=== PATIENT | male | born 1950 | race Caucasian/White ===

== ENCOUNTER 2016-08-13 06:55 | Observation (INO) | payer OTHER ==
[2016-08-13] MEDS ORDERED: NS 1,000 ML IV ONE (06:57)
[2016-08-13] MEDS ORDERED: MIDAZOLAM 2 MG/2 ML VIAL IVP ONE (06:57)
--- NOTE | 2016-08-13 07:18 | CPEKG ---
Heart Rate: 75 RR Interval: 800 P-R Interval: 180 QRSD Interval: 98 QT Interval: 384 QTC Interval: 429 P [place]: -1 QRS [place]: -32 T Wave [place]: 36 EKG Severity - OTHERWISE NORMAL ECG - EKG Impression: SINUS RHYTHM EKG Impression: LEFT AXIS DEVIATION Electronically Signed By: Iqra Miller 13-Aug-2016 09:17:25
[2016-08-13 07:42] LABS: % IMMATURE GRANULYOCYTES 0.2 % (0.0-1.1); ABSOLUTE IMMATURE GRANULOCYTES 0.01 10^3/uL (0.00-0.10); ADD DIFF? NO; ADD MORPH? NO; ADD SCAN? NO; ATYPICAL LYMPHOCYTE FLAG 0 (0-99); FRAGMENT RBC FLAG 0 (0-99); HEMATOCRIT 47.8 % (40.0-51.0); HEMOGLOBIN 16.4 g/dL (13.7-17.5); LEFT SHIFT FLG 0 (0-99); LIPEMIA HEMOLYSIS FLAG 90 (0-99); MEAN CELL HEMOGLOBIN 30.3 pg (27.9-34.1); MEAN CELL HEMOGLOBIN CONCENTR. 34.3 g/dL (32.4-36.7); MEAN CELL VOLUME 88.2 fL (81.5-99.8); MEAN PLATELET VOLUME 9.3 fL (8.7-11.7); PLATELET CLUMPS FLAG 0 (0-99); PLATELET COUNT 342 10^3/uL (150-400); RED BLOOD CELL COUNT 5.42 10^6/uL (4.40-6.38); RED CELL DISTRIBUTION WIDTH 13.2 % (11.5-15.2)
[2016-08-13 07:59] LABS: INR 1.04 (0.83-1.16); PROTIME(PATIENT) 13.5 SEC (12.0-15.0)
[2016-08-13 08:00] LABS: APTT 32.3 SEC (23.0-38.0)
[2016-08-13 08:08] LABS: ANION GAP 10 mEq/L (8-16); CALCIUM 9.5 mg/dL (8.5-10.4); CARBON DIOXIDE 25 mEq/l (22-31); CHLORIDE 107 mEq/L (97-110); CREATININE 0.9 mg/dL (0.7-1.3); GLOMERULAR FILTRATION RATE > 60; GLUCOSE 109 mg/dL (70-100); MAGNESIUM 2.2 mg/dL (1.6-2.3); POTASSIUM 4.4 mEq/L (3.5-5.2); SODIUM 142 mEq/L (134-144)
[2016-08-13] MEDS ORDERED: LIDOCAINE 1% 30 ML SDV ONE (08:12)
[2016-08-13] MEDS ORDERED: ISOPROTERENOL HCL 0.2 MG/ML 5ML AMP ONE (08:12)
[2016-08-13] MEDS ORDERED: BUPIVACAINE 0.5% 30 ML SDV ONE (08:12)
[2016-08-13] MEDS ORDERED: HEPARIN 10,000 UNIT/10 ML MDV ONE (08:12)
[2016-08-13] MEDS ORDERED: IOPAMIDOL (ISOVUE-370) 150 ML BTL IV ONE ×2 (08:15→09:41)
[2016-08-13] MEDS ORDERED: PROPOFOL/EMULSION 500 MG/50 ML BOTTLE IV ONE (08:30)
[2016-08-13] MEDS ORDERED: DIAZEPAM 10 MG/2 ML SYR ONE (08:31)
[2016-08-13] MEDS ORDERED: fentaNYL 100 MCG/2 ML INJ ONE (08:31)
[2016-08-13] MEDS ORDERED: BIVALIRUDIN 250 MG/5 ML VIAL IV ONE (09:34)
[2016-08-13] MEDS ORDERED: NITROGLYCERIN 1,500 MCG/15 ML VIAL MISC ONE (09:43)
[2016-08-13] MEDS ORDERED: PRASUGREL HCL 10 MG TAB ONE (10:24)
--- NOTE | 2016-08-13 11:16 | PDDXCAT ---
Diagnostic Cath Note - . Date: 08/13/16 Intervention: See Below *Procedure 1. Selective coronary angiography 2. Drug eluting stent implantation in the mid right coronary artery Indication: I was called for an intraoperative consultation after the identification of an 80% mid right coronary artery lesion during diagnostic cardiac catheterization with Dr. Pepe. Access: right femoral artery *Materials Coronary Angiography Size: 6F Coronary Angiography Materials: JR4.0, 0.014" Intuition Guide Wire, 3.0 x 32 mm Synergy drug eluting stent, 3.5 x 15 NC Emerge balloon, 4.5 x 8 mm compliant [place] Emerge balloon. *Findings-Selective coronary angiography RCA: The right coronary artery is dominant and ~3.5 mm in size. There is a mid RCA lesion estimated to be 80% in plaque area stenosis with IKE III flow and a prestenotic dilation of the artery estimated to be 4.5 mm in size. This lesion was revascularized with a 3.0 x 32 mm Synergy drug eluting stent as outlined below. *Intervention Intervention: A 6 Panamanian JR4.0 guiding catheter was used for guide catheter support. A 0.014" Intuition Guide Wire was advanced to the distal right coronary artery under direct fluoroscopic and angiographic guidance. Angiomax bolus and continuous infusion were given continuously with a documented ACT over 300 seconds. A 3.0 x 32 mm Synergy drug eluting stent was placed in the RCA lesion (80% with IKE III flow) and inflated to a maximum of 18 bibi of pressure. S/p stent implantation, a 3.5 x 15 mm NC Emerge balloon was used to post-dilate the lesion under 16 bibi of pressure. S/p post-dilation, the stent was still not opposed to the aneurysmal segment of the vessel wall proximal to the original lesion. A 4.5 x 8 mm complaint [place] Emerge balloon was placed in this segment and inflated to 16 bibi of pressure to solve that issue. The stent appeared well-opposed with 0% residual stenosis and IKE III flow s/p stent implantation and post dilation with both NC and compliant balloons. *Summary Complications: None Estimated blood loss: <50ml Closure method: Angioseal Assessment: 1. Successful drug eluting stent implantation in the mid right coronary artery with excellent angiographic results (80% plaque area stenosis pre stent implantation with IKE III flow | 0% plaque area stenosis post stent implantation with IKE III flow). Patient Problems: Problems Problem Status Onset MSSA (methicillin susceptible Staphylococcus aureus) Acute Osteomyelitis of right elbow Acute Septic bursitis of elbow Acute
[2016-08-13] MEDS ORDERED: TEMAZEPAM 15 MG CAP PO PRN (11:18)
[2016-08-13] MEDS ORDERED: ONDANSETRON DISINTEGRATING 4 MG TAB PO PRN (11:18)
[2016-08-13] MEDS ORDERED: ATROPINE SULFATE 1 MG/10 ML SYR IVP PRN (11:18)
[2016-08-13] MEDS ORDERED: NITROGLYCERIN 0.4 MG BTL SL PRN (11:18)
[2016-08-13] MEDS ORDERED: LORazepam 2 MG/ML INJ IVP PRN (11:18)
[2016-08-13] MEDS ORDERED: ACETAMINOPHEN 325 MG TAB PO PRN (11:18)
[2016-08-13] MEDS ORDERED: ONDANSETRON 4 MG/2 ML VIAL IVP PRN (11:18)
[2016-08-13] MEDS ORDERED: PRASUGREL HCL 10 MG TAB PO ONE (11:18)
[2016-08-13] MEDS ORDERED: NS 1,000 ML IV SCH (11:30)
--- NOTE | 2016-08-13 11:59 | GHP ---
DATE OF ADMISSION: 08/13/2016 INDICATION FOR ADMISSION: Post PCI. HISTORY OF PRESENT ILLNESS: The patient is a pleasant 66-year-old gentleman with a past medical his tory of hyperlipidemia, left ventricular hypertrophy, history of pernicious anemia, and recent histo ry of syncope without prodrome while riding his bike. He had undergone extensive workup to date, in cluding complete 2D echocardiogram, normal exercise nuclear stress test, unremarkable Holter monitor , as well as cardiac MRI. He was scheduled for outpatient elective admission today for diagnostic l eft heart catheterization, followed by EP study and implantable loop recorder. Diagnostic left heart catheterization demonstrated a significant focal tubular stenosis of the proxi mal codominant right coronary artery. He underwent successful percutaneous coronary intervention to the proximal right coronary artery without complication. In the setting of finding significant sin gle-vessel coronary artery disease, EP study was canceled. Plan for implantable loop recorder to be placed tomorrow prior to discharge. He tolerated the procedure well. PAST MEDICAL HISTORY: 1. Pernicious anemia. 2. Vitamin D deficiency. 3. Hyperlipidemia. 4. History of left ventricular hypertrophy. 5. History of non-prodromal syncope. OUTPATIENT MEDICATIONS: Include: 1. Aspirin 81 mg daily. 2. Atorvastatin 20 mg daily. 3. CoQ10 200 mg once daily. 4. Fish oil daily. 5. Multivitamin once daily. 6. Vitamin B12 injections 1000 mcg/mL, 1500 mcg injection IM q.1 month. 7. Vitamin D3 400 units daily. 8. Cyclobenzaprine 10 mg, take 1/2 tab p.o. q.h.s. p.r.n. muscle pain. 9. Cialis 10 mg p.o. p.r.n. ALLERGIES: No known drug allergies. SOCIAL HISTORY: He is . He lives with his . He is an avid cyclist. He has a son who i s an ER physician. He is a nonsmoker. FAMILY HISTORY: No family history of premature coronary artery disease. EXAMINATION: GENERAL: Prior to left heart catheterization, patient was awake, alert, oriented, marissa ropriate, no apparent distress. The patient was hemodynamically stable. IMPRESSION: 1. Severe single-vessel coronary artery disease. 2. Successful PCI to the proximal codominant right coronary artery. 3. Preserved left ventricular function. 4. History of syncope. PLAN: 1. Admit to [facility] overnight. 2. Initiate aspirin 325 mg once daily. 3. Prasugrel 60 mg loading today. Will start 10 mg p.o. daily tomorrow. 4. Continue atorvastatin 20 mg daily. 5. The patient will remain n.p.o. after midnight tonight in anticipation of implantable loop record er tomorrow morning, to be done prior to discharge. /[id number]/MODL
--- NOTE | 2016-08-13 12:03 | CPEKG ---
Heart Rate: 72 RR Interval: 833 P-R Interval: 192 QRSD Interval: 96 QT Interval: 396 QTC Interval: 434 P [place]: 27 QRS [place]: -15 T Wave [place]: 33 EKG Severity - OTHERWISE NORMAL ECG - EKG Impression: SINUS RHYTHM EKG Impression: BORDERLINE LEFT AXIS DEVIATION Electronically Signed By: Iqra Miller 13-Aug-2016 15:22:12
--- NOTE | 2016-08-13 12:30 | CPIP ---
DATE OF PROCEDURE: 08/13/2016 INDICATION FOR PROCEDURE: Non-prodromal syncope. PROCEDURE PERFORMED: Left heart catheterization. PATIENT SUMMARY: The patient is a pleasant 66-year-old gentleman, who has been followed closely by Dr. Yip at [facility], who was in his usual state of health until last fall when he had an episode of non- prodromal syncope while riding his bike. He had no memory of the details surrounding the event. He did undergo extensive workup including unremarkable complete 2D echocardiogram, normal exercise nuclear stress test, normal event monitoring. Cardiac MRI was also unremarkable. Did have a CT of the chest, which did demonstrate isolated right coronary artery plaque. In the setting of non-prodromal syncope coupled with evidence of PVCs, plan was for electrophysiology study with Dr. Vergara. However, in the setting of PVCs and evidence of calcified plaque on CT of the chest, diagnostic left heart catheterization was performed. PROCEDURE: After an informed consent was obtained, the patient was brought to the cardiac catheterization lab, where he was prepped and draped in a sterile fashion. Using 1% lidocaine, the right groin was anesthetized. Using modified Seldinger technique, a 6-Tanzanian sheath was placed into the right common femoral artery without complication. Side port was flushed without complication. A JL4 catheter was used to take images of the left coronary anatomy in multiple projections. The JL4 catheter was exchanged over a guidewire for a JR4 catheter. JR4 catheter was used to take images of the right coronary anatomy in multiple projections. Right JR4 catheter was removed over a wire without complications. FINDINGS: 1. Left main normal size and caliber and bifurcates into the left anterior descending and left circumflex coronary artery. Left main was free of coronary artery disease. Left main provided 1st and 2nd diagonal branch and multiple septal perforators. There was no evidence of coronary disease throughout the left anterior descending artery. 2. Left circumflex artery was a codominant vessel. There was no evidence of coronary disease within the circumflex vessels as well as a large 1st obtuse marginal branch. Right coronary artery was a large-caliber codominant vessel. There was an 80% tubular proximal stenosis in the right coronary artery. CONCLUSION: 1. Severe single-vessel coronary artery disease. 2. Normal left coronary anatomy. I have reviewed these images with my interventional colleague, Dr. Chris Em. The patient was scheduled for immediate post-diagnostic left heart catheterization percutaneous coronary intervention to the right coronary artery. Please see his dictation for details. /[id number]/MODL MTDD
[2016-08-14 05:13] LABS: % IMMATURE GRANULYOCYTES 0.1 % (0.0-1.1); ABSOLUTE IMMATURE GRANULOCYTES 0.01 10^3/uL (0.00-0.10); ADD DIFF? NO; ADD MORPH? NO; ADD SCAN? NO; ATYPICAL LYMPHOCYTE FLAG 0 (0-99); FRAGMENT RBC FLAG 0 (0-99); HEMATOCRIT 45.5 % (40.0-51.0); HEMOGLOBIN 15.7 g/dL (13.7-17.5); LEFT SHIFT FLG 0 (0-99); LIPEMIA HEMOLYSIS FLAG 90 (0-99); MEAN CELL HEMOGLOBIN 30.7 pg (27.9-34.1); MEAN CELL HEMOGLOBIN CONCENTR. 34.5 g/dL (32.4-36.7); MEAN CELL VOLUME 88.9 fL (81.5-99.8); MEAN PLATELET VOLUME 9.7 fL (8.7-11.7); PLATELET CLUMPS FLAG 0 (0-99); PLATELET COUNT 304 10^3/uL (150-400); RED BLOOD CELL COUNT 5.12 10^6/uL (4.40-6.38); RED CELL DISTRIBUTION WIDTH 13.4 % (11.5-15.2)
[2016-08-14 05:26] LABS: ALBUMIN 3.5 g/dL (3.5-5.0); ANION GAP 7 mEq/L (8-16); ASPARTATE AMINOTRANSFERASE 22 IU/L (17-59); BILIRUBIN,TOTAL 0.8 mg/dL (0.1-1.4); CALCIUM 9.3 mg/dL (8.5-10.4); CARBON DIOXIDE 25 mEq/l (22-31); CHLORIDE 109 mEq/L (97-110); CREATININE 0.8 mg/dL (0.7-1.3); GLOMERULAR FILTRATION RATE > 60; GLUCOSE 89 mg/dL (70-100); LACTATE DEHYDROGENASE 349 IU/L (313-618); MAGNESIUM 2.1 mg/dL (1.6-2.3); POTASSIUM 4.3 mEq/L (3.5-5.2); SODIUM 141 mEq/L (134-144)
--- NOTE | 2016-08-14 07:43 | PDCARPN ---
Cardiology Progress Note Chief Complaint: Mr. Stevenson is feeling well this morning . NO complaints. No events overnight. No right groin tenderness. Hemodynamically stable. Labs demonstrate normal renal function. Assessment/Plan: Assessment: 1. Single Vessel CAD with PCI to the proixmal RCA yesterday 2. Syncope Plan: -plan for Medtronic LINQ this morning -continue DAPT with aspirin 325 mg daily and Effient 10 mg dailiy -Atorvastatin 20 mg daily -[facility] Card[facility] Rehab order submitted -Follow up with me next week -Discharge home after LINQ 08/14/16 07:40 Reviewed/Discussed With: family Time Spent With Patient: 20 minutes Objective: Vital Signs (8 Hrs) Temp Pulse Resp BP Pulse Ox 08/14/16 04:00 36.8 C 82 18 100/74 94 Intake/Output (24 Hrs) 08/13/16 08/14/16 08/15/16 05:59 05:59 05:59 Intake Total 200 Output Total 300 Balance -100 Intake: Oral (ml) 200 Output: Urine (ml) 300 Urinal 300 Other: Weight 90.7 kg Number of Voids Toilet 1 Result Diagrams: 08/14/16 04:15 08/14/16 04:15 - Physical Exam Constitutional: WDWN Cardiovascular: regular rate and rhythm, no murmurs, no rubs, no gallops Peripheral Pulses: 2+: dorsalis-pedis (R), dorsalis-pedis (L) Respiratory: clear to auscultate bilat Skin: no rashes Musculoskeletal: no muscular tenderness Neurologic: AAOx3, CN II-XII grossly intact Psychiatric: cooperative ICD10 Worksheet Patient Problems: Problems Problem Status Onset MSSA (methicillin susceptible Staphylococcus aureus) Acute Osteomyelitis of right elbow Acute Septic bursitis of elbow Acute
[2016-08-14] MEDS ORDERED: LIDOCAINE 1% 30 ML SDV IV ONE (08:00)
--- NOTE | 2016-08-14 08:44 | CPEKG ---
Heart Rate: 75 RR Interval: 800 P-R Interval: 180 QRSD Interval: 100 QT Interval: 380 QTC Interval: 425 P [place]: -12 QRS [place]: -36 T Wave [place]: 48 EKG Severity - OTHERWISE NORMAL ECG - EKG Impression: SINUS RHYTHM EKG Impression: LEFT AXIS DEVIATION Electronically Signed By: Iqra Miller 14-Aug-2016 15:09:41
[2016-08-14 08:53] VITALS: BP 116/76; PULSE 75; RESP 16; TEMP 97.9; O2SAT 92
[2016-08-14] MEDS ORDERED: ASPIRIN EC 325 MG TAB PO SCH (09:00)
[2016-08-14] MEDS ORDERED: ATORVASTATIN CALCIUM 20 MG TAB PO SCH (09:00)
[2016-08-14] MEDS ORDERED: PRASUGREL HCL 10 MG TAB PO SCH (09:00)
--- NOTE | 2016-08-14 09:07 | GPN ---
[f rep st] PROCEDURE NOTE PROCEDURE PERFORMED: Implantable loop recorder, Medtronic. INDICATION FOR PROCEDURE: Non prodromal syncope. PROCEDURE: After informed consent was obtained, the patient was brought to the cardiac procedure ro om where he was prepped and draped in a sterile fashion. Using 1% lidocaine, the left fourth interc ostal space was 2 cm from midline was anesthetized. Once appropriate level of anesthesia was obtain ed locally, incision was made with the scalpel blade provided in the Medtronic kit with modification of this incision with scalpel blade. Appropriate tract with the syringe was used. The device was implanted at a 45 degree angle without difficulty. This was at least 1 cm below the incision. Makeda ent tolerated the procedure well. Hemostasis was achieved. Sterile dressing and Steri-Strips were applied. There were no postoperative complications. Device was checked demonstrating normal device function. PLAN: 1. Patient has been given postoperative instructions. 2. Patient will follow up in our office next Thursday for device check and wound check. /[id number]/MODL
--- NOTE | 2016-08-14 11:31 | GDS ---
[f rep st] DISCHARGE SUMMARY INDICATION: Elective admission for diagnostic left heart catheterization, followed by possible KONRAD caban in the setting of nonprodromal syncope and evidence of calcification in the right coronary hector ry and ventricular ectopy noted during treadmill stress test. HOSPITAL COURSE: Mr. Stevenson underwent diagnostic left heart catheterization prior to the to EP stud y. Left heart catheterization demonstrated significant single-vessel coronary artery disease with a focal proximal tubular stenosis of approximately 80% in a codominant right coronary artery. He und erwent successful deployment of a single 3.0 x 32 mm Synergy drug-eluting stent to the proximal righ t coronary artery disease without complications. He tolerated the procedure well. He remained hemodynamically stable overnight without complications. On the morning of August 14, 2016 , he underwent implantable loop recorder deployment without complication. He tolerated the procedur e well. Hemostasis was achieved. Sterile dressing was applied. Device check demonstrated normal d evice function. He remained stable for discharge after implantable loop recorder deployment. MEDICATIONS AT TIME OF DISCHARGE: 1. Aspirin 325 mg once daily. 2. Prasugrel/Effient 10 mg daily. 3. Atorvastatin 20 mg daily. 4. Nitroglycerin 0.4 mg sublingual p.r.n. chest pain x3 q.5 minutes. 5. Temazepam 50 mg p.o. h.s. p.r.n. 6. Vitamin D3 1000 units daily. 7. B12 1000 mcg injection of 1500 mcg IM q.1 month. 8. Fish oil 1000 mg capsule once daily. 9. Multivitamin once daily. ALLERGIES: To medications, none. EXAM: At time of discharge, patient is awake, alert, oriented and appropriate. Blood pressure is 1 00/74, heart rate 82, in sinus rhythm, respiratory rate of 18, oxygen saturation 94% on room air. H e is afebrile at 36.8 Celsius. He is awake, alert, oriented, appropriate, no apparent distress. CA RDIAC: S1, S2. Regular rate and rhythm. No murmurs, rubs, or gallops. LUNGS: Clear to auscultat ion bilaterally. Right groin site is without hematoma or ecchymosis. Distal pulses are intact. LAB WORK: At time of discharge, white blood cell count 6.72, hematocrit 45.5, and hemoglobin of 15. 7. Sodium 141, potassium 4.3, chloride 109, bicarb 25, BUN 15, creatinine 0.8, magnesium 2.1. AST 22. PLAN: At time of discharge: 1. Patient will be discharged home. 2. He is scheduled to follow up with me in the office on Monday August 22, 2016 for a 9 o'clock roverto ce check, followed by a 9:30 appointment with me. Patient has been given postoperative instructions for both left heart catheterization and implantabl e loop recorder. Over 30 minutes were spent in planning this discharge summary. /[id number]/MODL
== END 2016-08-14 10:29 | disposition home or self-care (01) ==
LOC: FCATH 06:55 → F2W 09:54
PROVIDERS: ADMIT Internal Medicine Cardiovascular Disease; ATTEND Internal Medicine Interventional Cardiology
PROC: B2151ZZ Fluoroscopy of Left Heart using Low Osmolar Contrast (ICD-10-PCS; principal; 2016-08-13)
PROC: 4A023N7 Measurement of Cardiac Sampling and Pressure, Left Heart, Percutaneous Approach (ICD-10-PCS; principal; 2016-08-13)
PROC: 027034Z Dilation of Coronary Artery, One Artery with Drug-eluting Intraluminal Device, Percutaneous Approach (ICD-10-PCS; principal; 2016-08-13)
PROC: B2111ZZ Fluoroscopy of Multiple Coronary Arteries using Low Osmolar Contrast (ICD-10-PCS; principal; 2016-08-13)
PROC: 0JH63PZ Insertion of Cardiac Rhythm Related Device into Chest Subcutaneous Tissue and Fascia, Percutaneous Approach (ICD-10-PCS; 2016-08-14)
DX: R55 Syncope and collapse (principal); I25.10 Atherosclerotic heart disease of native coronary artery without angina pectoris; D51.0 Vitamin B12 deficiency anemia due to intrinsic factor deficiency; E55.9 Vitamin D deficiency, unspecified
CPT/HCPCS: 33282; 93005; 93454; C1725; C1760; C1764; C1769; C1874; C1887; C9600; J1644; J2704; J3010; Q9967; J0583

== ENCOUNTER 2017-07-08 06:46 | Observation (INO) | payer OTHER, MEDICARE ==
[2017-07-08] MEDS ORDERED: NS 1,000 ML IV ONE (06:55)
[2017-07-08 07:29] LABS: PLATELET COUNT 292 10^3/uL (150-400)
--- NOTE | 2017-07-08 07:34 | CPEKG ---
Heart Rate: 65 RR Interval: 923 P-R Interval: 192 QRSD Interval: 94 QT Interval: 408 QTC Interval: 425 P [place]: -3 QRS [place]: -31 T Wave [place]: 20 EKG Severity - OTHERWISE NORMAL ECG - EKG Impression: SINUS RHYTHM EKG Impression: LEFT AXIS DEVIATION Electronically Signed By: Matt Vergara 08-Jul-2017 08:00:34
[2017-07-08 07:38] LABS: INR 0.98 (0.83-1.16); PROTIME(PATIENT) 13.2 SEC (12.0-15.0)
--- NOTE | 2017-07-08 07:56 | PDGENHP ---
History & Physical Chief Complaint: syncope in past, rca stent History of Present Illness: syncope in past. hr 167 bpm Relevant Physical Exam: s1s2 rrr. cta. ao3 Cardiorespiratory Assessment: syncope in past. rca stent was done and eps was cancelled at that time due to critical rca lesion. linq monitor shows st or svt 167 bpm
[2017-07-08] MEDS ORDERED: HEPARIN 10,000 UNIT/10 ML MDV (1,000 UNIT/ML) ONE (08:00)
[2017-07-08] MEDS ORDERED: ISOPROTERENOL HCL/D5W 0.2 MG/50 ML BAG IV ONE ×2 (08:01→10:56)
--- NOTE | 2017-07-08 08:06 | PDANEPAE ---
ANE History of Present Illness 66 year old male with non-prodromal syncope/near syncope. Patient had symptoms last year, underwent heart yady and discovered to have RCA lesion, stented at that time. Also, Link recorder implanted at that time. Link recorder displaying episodes of tachycardia > 150bpm. Patient now presents for EP study with Dr. Vergara. ANE Past Medical History - Cardiovascular History Hx Hypertension: No Hx Arrhythmias: Yes Hx Chest Pain: No Hx Coronary Artery / Peripheral Vascular Disease: No Hx CHF / Valvular Disease: No Cardiovascular History Comment: History of RCA lesion stented in 2017; Non- prodromal syncope/near syncope and link recorder with tachycardia (SVT vs. Sinus Tach, but exact ryhthm unknown) - Pulmonary History Hx COPD: No Hx Asthma/Reactive Airway Disease: No Hx Recent Upper Respiratory Infection: No Hx Oxygen in Use at Home: No Hx Sleep Apnea: Yes - Endocrine History Hx Diabetes: No Hypothyroid: No Hyperthyroid: No Obesity: no - Renal History Hx Renal Disorders: No - Liver History Hx Hepatic Disorders: No - Neurological & Psychiatric Hx Hx Neurological and Psychiatric Disorders: No - Cancer History Hx Cancer: No - Congenital Disorder History Hx Congenital Disorders: No - GI History GERD: mild - Chronic Pain History Chronic Pain: No ANE Review of Systems Review of systems is: negative Review of Systems: - Exercise capacity Exercise capacity: >=4 METS ANE Patient History - Allergies Allergies/Adverse Reactions: No Known Allergies Allergy (Verified 03/09/16 14:41) - Home Medications Home medications: home medication list seen and reviewed Home Medications: Cholecalciferol Vit D3 [Vitamin D3 (*)] 1,000 units PO DAILY 01/23/16 [Last Taken 07/07/17] Cyanocobalamin [Vitamin B12 1000MCG/ML (*)] 1,500 mcg IM Q30D 01/23/16 [Last Taken 06/22/17] Herbals/Supplements -Info Only 1 ea PO DAILY 01/23/16 [Last Taken Unknown] Multivitamins [Multivitamin (*)] 1 each PO DAILY 08/13/16 [Last Taken 07/07/17] Gays-3 Fatty Acids [Fish Oil 1000 mg (*)] 1,000 mg PO DAILY 07/08/17 [Last Taken 07/07/17] - NPO status NPO Status: no food or drink >8 hours - Anes Hx Anes Hx: no prior problems - Smoking Hx Smoking Status: Never smoked Marijuana use: No - Alcohol Use Alcohol Use: Occasionally - Family Anes Hx Family Anes Hx: neg - N/A ANE Labs/Vital Signs - Labs Result Diagrams: 07/08/17 07:20 07/08/17 07:20 - Vital Signs Vital Signs: reviewed preoperatively; see RN documention for details Height: 178 cm Weight: 84.8 kg ANE Physical Exam - Airway Neck exam: FROM Mallampati Score: Class 1 Mouth exam: normal dental/mouth exam Mouth image: 1 - Chipped inferior cutting surface - Pulmonary Pulmonary: no respiratory distress - Cardiovascular Cardiovascular: regular rate and rhythym - ASA Status ASA Status: III ANE Anesthesia Plan Anesthesia Plan: general endotracheal anesthesia Total IV Anesthesia: No
[2017-07-08] MEDS ORDERED: PROPOFOL 200 MG/20 ML VIAL ONE (08:33)
[2017-07-08] MEDS ORDERED: fentaNYL 100 MCG/2 ML INJ ONE (08:33)
[2017-07-08] MEDS ORDERED: ROCURONIUM 50 MG/5 ML VIAL ONE ×3 (08:33→10:13)
[2017-07-08] MEDS ORDERED: PHENYLEPHRINE HCL 100 MCG/ML SYR ONE (09:08)
[2017-07-08] MEDS ORDERED: ATROPINE SULFATE 1 MG/ML VIAL ONE ×2 (10:55)
[2017-07-08] MEDS ORDERED: SUGAMMADEX SODIUM 200 MG/2 ML VIAL IVP ONE (11:07)
[2017-07-08] MEDS ORDERED: ONDANSETRON 4 MG/2 ML VIAL ONE (11:07)
[2017-07-08] MEDS ORDERED: ACETAMINOPHEN 325 MG TAB PO PRN (11:25)
[2017-07-08] MEDS ORDERED: ONDANSETRON 4 MG/2 ML VIAL IVP PRN (11:25)
--- NOTE | 2017-07-08 11:25 | EPPROC ---
Electrophysiology Procedure Note: ELECTROPHYSIOLOGIC STUDY AND CATHETER MEDIATED ABLATION OF SLOW/FAST AV TOSHIA REENTRY TACHYCARDIA PROCEDURES PERFORMED: 86202-08 EP evaluation with RA/RV/LA pace/record, with arrhythmia induction 14818-83 EP evaluation with RA/RV pace record, insert/reposition catheter, with arrhythmia induction 52828 Intracardiac catheter ablation, SVT arrhythmogenic focus 16200 3D mapping Fluoroscopy INDICATION: Syncope SVT seen on LINQ monitor PROCEDURE: Catheters & Anesthesia: The patient arrived in the Electrophysiology Laboratory in the fasting state. The right clavicular region, right groin, and left groin area were prepped and draped in the usual sterile manner. Anesthesiologist Dr. Kd Mann administered general anesthesia. Appropriate non-invasive blood pressure, pulse oximetry and end-tidal CO2 monitoring was established. All catheters were placed percutaneously using the modified Seldinger technique , and advanced into position under fluoroscopic guidance. One #6 Jamaican hexapolar non-deflectable electrode catheter was inserted into the right atrial appendage via the left femoral vein (2mm spacing; except the proximal ring which was 25cm from the tip used for unipolar recordings). One #7 Jamaican deflectable octapolar electrode catheter was advanced to the His-bundle position via the left femoral vein (2mm spacing). One #7 Jamaican deflectable quadrapolar catheter was advanced to the anteroseptal right ventricle via the right femoral vein. One #7 Jamaican deflectable catheter with 10 pairs of electrodes was placed via the right femoral vein into the coronary sinus. Heparin was given to keep ACT > 200 s. Programmed stimulation was performed from the right atrium, right ventricle and coronary sinus (left atrium). Parahisian pacing demonstrated constant H-A interval with changing V-A intervals and stimulus-A intervals during capture and loss of capture of proximal RBB proving retrograde conduction over AV node. AVNRT was induced easily during infusion of isoproterenol 4 mcg/min + 0.5 mg of atropine. Tachycardia started with long AH interval. During change in tachycardia cycle length, HH interval preceded change in a interval. Tachycardia was nonsustained for about 25 seconds and therefore entrainment could not be performed. VA interval was 50 ms. Post entrainment of the tachycardia from the ventricle, there was VAHV response. Mapping of the right atrium and coronary sinus during AVNRT identified earliest atrial activation above the tendon of Trell at a level slightly posterior to the level of the His bundle, consistent with retrograde conduction over the fast AV toshia pathway. A #8 Jamaican deflectable quadrapolar electrode catheter (2mm-5mm-2mm spacing) with 4 mm tip electrode and sensor for the 3D mapping Carto system was advanced to the right atrium. 3 D mapping of the inter-atrial septum and coronary sinus was performed and location of the AV node was marked. A SL2 sheath was used. RF applications were delivered to the region between the tricuspid annulus and the coronary sinus ostium, at the level of the upper edge of the coronary sinus ostium. Radiofrequency applications were also delivered along the roof of the proximal coronary sinus. Junctional rhythm occurred during all of the RF applications. Programmed stimulation was continued post ablation at baseline and during graded doses of isoproterenol upto 4mcg/min. Sustained AVNRT was not inducible. There were no echo beats. The catheters were removed. The long sheath was changed to a short 9 Fr sheath. The patient was transferred to the cardiovascular holding area in stable condition. Vascular access sheaths were removed in the EP lab after pursestring suture was applied. There were no apparent complications. Results: A. Spontaneous Intervals: Pre ablation SCL 720 ms AH 85 ms HV 45 ms Post ablation SCL _700_ ms AH 800 ms HV 45 ms B. Antegrade AV toshia function (decremental pacing) Pre ablation FPERP 440 ms WBB CL 430 ms Post ablation FPERP 410 ms WBB CL 400 ms C. Retrograde AV toshia function (decremental pacing) Pre ablation FPERP 420 ms WBB CL 410 ms D. Arrhythmias: Sustained slow/fast AVNRT Cycle length 390 ms, AH interval 230 ms, ANN interval 140 ms VA interval 50 ms CONCLUSIONS 1. AV toshia reentrant tachycardia using the slow AV toshia pathway for antegrade conduction and the fast AV toshia pathway for retrograde conduction. ( Slow/fast AVNRT). 2. Successful ablation of the slow AV toshia pathway with elimination of 1:1 antegrade conduction over the slow AV toshia pathway, all retrograde conduction over the slow AV toshia pathway and the inducibility of AVNRT. 3. No complications. Patient Problems: Problems Problem Status Onset Syncope Acute Septic bursitis of elbow Acute MSSA (methicillin susceptible Staphylococcus aureus) Acute Osteomyelitis of right elbow Acute
[2017-07-08] MEDS ORDERED: NITROGLYCERIN 0.4 MG BTL SL PRN (11:26)
[2017-07-08] MEDS ORDERED: TEMAZEPAM 15 MG CAP PO PRN (11:26)
--- NOTE | 2017-07-08 11:44 | CPEKG ---
Heart Rate: 89 RR Interval: 674 P-R Interval: 176 QRSD Interval: 96 QT Interval: 368 QTC Interval: 448 P [place]: 41 QRS [place]: -35 T Wave [place]: 26 EKG Severity - OTHERWISE NORMAL ECG - EKG Impression: SINUS RHYTHM EKG Impression: LEFT AXIS DEVIATION Electronically Signed By: Matt Vergara 08-Jul-2017 21:40:15
--- NOTE | 2017-07-08 15:44 | POSTANESTH ---
Post Anesthetic Evaluation Cardiovascular Status: Normal, Stable, Similar to Pre-Op Cond Respiratory Status: Normal, Stable, Similar to Pre-op Cond. Level of Consciousness/Mental Status: Can Participate in Eval, Alert and Oriented Pain Control: Adequate, Prn Tx Ordered Nausea/Vomiting Control: Adequate, Prn Tx Ordered Complications Possibly Related to Anesthesia: None Noted
[2017-07-08 23:55] VITALS: RESP 18
[2017-07-09 05:35] LABS: PLATELET COUNT 278 10^3/uL (150-400)
[2017-07-09 05:59] LABS: CREATINE KINASE 71 IU/L (0-224)
[2017-07-09 06:02] LABS: INR 1.04 (0.83-1.16); PROTIME(PATIENT) 13.8 SEC (12.0-15.0)
[2017-07-09 07:44] VITALS: BP 122/78; PULSE 78; TEMP 98; O2SAT 94
[2017-07-09] MEDS ORDERED: PRASUGREL HCL 10 MG TAB PO SCH (09:00)
[2017-07-09] MEDS ORDERED: ATORVASTATIN CALCIUM 20 MG TAB PO SCH (09:00)
[2017-07-09] MEDS ORDERED: ASPIRIN EC 325 MG TAB PO SCH (09:00)
--- NOTE | 2017-07-09 09:30 | CPEKG ---
Heart Rate: 67 RR Interval: 896 P-R Interval: 192 QRSD Interval: 94 QT Interval: 388 QTC Interval: 410 P Columbia: -5 QRS Columbia: -38 T Wave Columbia: 44 EKG Severity - OTHERWISE NORMAL ECG - EKG Impression: SINUS RHYTHM EKG Impression: ATRIAL PREMATURE COMPLEX EKG Impression: LEFT AXIS DEVIATION Electronically Signed By: Rolf Locke 09-Jul-2017 13:08:05
--- NOTE | 2017-07-09 10:31 | ASMTCASEMG ---
Living Arrangements What is your living Answers: With Spouse arrangement? Who do you live with? Type Of Residence What kind of residence do Answers: House you live in? Discharge Plan Comments Coordination Status Comments Notes: CM spoke w/ ROHIT Meza regarding d/c POC. Pt is a 66 y/o man admitted for sp svt ablation. Pt will most likely d/c independent when medically stable. No therapies ordered at this time. CM available for changes. Plan: Independent Date Signed: 07/09/2017 10:31 AM Electronically Signed By:ANISA Luu
--- NOTE | 2017-07-09 10:42 | ECHO ---
[email or web address] [address] Main: [phone] Fax: Transthoracic Echocardiogram Name: APARNA KENNEDY MR#: [id number] Study Date: 07/09/2017 Study Time: 08:59 AM Date of : 1950 Age: 66 year(s) Height: 177.8 cm (70 in.) Weight: 84.37 kg (186 lb.) BSA: 2.02 m2 Gender: Male Examination: Echo Indication: f/u POST EP study Image Quality: Adequate Contrast: Requested by: Matt Vergara BP: 122 mmHg/78 mmHg Heart Rate: Rhythm: Normal sinus rhythm Indication: f/u POST EP study Procedure Staff Line Controller: Erendira Davis [facility] Reading Physician: Matt Vergara Requesting Provider: Conclusions: Mild concentric LV hypertrophy. Mid sigmoid septum without LVOT gradient. EF is 65 %. The left atrium is mildly dilated. The right atrium is mildly dilated. Mild tricuspid regurgitation is present. Mild pulmonic valve regurgitation is noted. Cannot rule out PDA.. Measurements: Chambers Valvular Assessment AV/MV Valvular Assessment TV/PV Normal Normal Normal Name Value Range Name Value Range Name Value Range Ao Amy (MM): 3.4 cm (2.2 cm-3.7 AV Vmax: 1.51 m/s (1 m/s-1.7 TR Vmax: 1.76 mm/s ( - ) cm) m/s) TR PGmax: 12 mmHg ( - ) IVSd (2D): 1.2 cm (0.6 cm-1.1 AV maxP mmHg ( - ) syst. PAP: 17 mmHg ( - ) cm) LVOT Vmax: 1.16 m/s (0.7 m/s-1.1 PV Vmax: 1.00 m/s (0.6 m/s-0.9 LVDd (2D): 4.7 cm (4.2 cm-5.9 m/s) m/s) cm) ADELA (Vmax): 4.1 cm2 ( - ) PV PGmax: 4 mmHg ( - ) LVDs (2D): 3.2 cm (2.1 cm-4 MV E Vmax: 0.62 m/s ( - ) cm) MV A Vmax: 0.70 m/s ( - ) LVPWd (2D): 1.0 cm (0.6 cm-1 MV E/A: 0.89 ( - ) cm) LVOTd 2.6 cm 2.6 cm mm LVEF (BP): 65 % (>=55 %) RVDd(2D): 3.4 cm (1.9 cm-3.8 cmmm) Continued Measurements: Chambers Valvular Assessment AV/MV Valvular Assessment TV/PV Patient: APARNA KENNEDY Study Date: 07/09/2017 Page 1 of 2 08:59 AM Name Value Name Value Name Value LADs Lon.8 cm MV DecTime: 239 m/s CVP (est.): 5 mmHg LA Area: 23.6 cm2 MV E' Septal: 0.06 m/s LA Volume: 72 ml MV E/E' Septal: 11.00 LA Volume Index: 35.6 ml/m2 MV E/E' Lateral: 6.90 TAPSE: 2.4 cm RA Area: 19.3 cm2 Additional Vessels Name Value Ao Ascendin.4 cm Findings: Left Ventricle: Normal size left ventricle. Mild concentric LV hypertrophy. Mid sigmoid septum without LVOT gradient. Normal global systolic LV function. EF is 65 %. No regional wall motion abnormality. Normal diastolic LV function. Right Ventricle: Normal size right ventricle. Normal RV function. Left Atrium: The left atrium is mildly dilated. Right Atrium: The right atrium is mildly dilated. Mitral Valve: The mitral valve is normal in appearance and function. Trivial mitral valve regurgitation. Aortic Valve: The aortic valve is normal in appearance and function. There is no significant aortic valve regurgitation. No aortic valve stenosis is present. Tricuspid Valve: The tricuspid valve is normal in appearance and function. Mild tricuspid regurgitation is present. The pulmonary artery pressure is normal. Pulmonic Valve: The pulmonic valve is normal in appearance and function. Mild pulmonic valve regurgitation is noted. Cannot rule out PDA.. Aorta: The aorta is normal. Normal size aortic root measuring 3.4 cm. Normal size ascending aorta measuring 3.4 cm. IVC: The IVC is normal sized. No foreign body in inferior vena cava. There is greater jayson 50% respiratory excursion. Pericardium: Trivial anterior pericardial effusion. (No Signature Object) Patient: APARNA KENNEDY Study Date: 07/09/2017 Page 2 of 2 08:59 AM [id number]
--- NOTE | 2017-07-09 16:48 | ASDISCHSUM ---
Discharge Information Plan Status:Home with No Needs Medically Cleared to Leave:07/08/2017 Discharge Date:07/09/2017 11:12 AM CM D/C Disposition: ADT D/C Disposition:Home, Routine, Self-Care Projected Discharge Date:07/09/2017 12:00 AM Transportation at D/C: Discharge Delay Reason: Follow-Up Date:07/09/2017 12:00 AM Discharge Slot: Final Diagnosis: Placement Information Patient Contact Information Contact Name:JORGE Relationship: Address:[address] Work Phone: City:[place] Alternate Phone: [facility]/Codesion Code:[place] [address] Email: Financial Information Financial Class: Primary Plan Desc:MEDICARE OUTPATIENT Primary Plan Number:[id number] Secondary Plan Desc:[employer]/M[employer] SUPPLEMENT Secondary Plan Number:[id number] Assessment Information [facility] Initial CM Assessment Living Arrangements What is your living Answers: With Spouse arrangement? Who do you live with? Type Of Residence What kind of residence do Answers: House you live in? Discharge Plan Comments Coordination Status Comments Notes: CM spoke w/ ROHIT Meza regarding d/c POC. Pt is a 66 y/o man admitted for sp svt ablation. Pt will most likely d/c independent when medically stable. No therapies ordered at this time. CM available for changes. Plan: Independent Date Signed: 07/09/2017 10:31 AM Electronically Signed By:ANISA Luu Intervention Information
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
== END 2017-07-09 11:12 | disposition home or self-care (01) ==
LOC: FCATH 06:46 → F2W 11:25
PROVIDERS: ADMIT Internal Medicine Cardiovascular Disease; ATTEND Internal Medicine Cardiovascular Disease
PROC: 02583ZZ Destruction of Conduction Mechanism, Percutaneous Approach (ICD-10-PCS; principal; 2017-07-08)
PROC: 5A1213Z Performance of Cardiac Pacing, Intermittent (ICD-10-PCS; principal; 2017-07-08)
PROC: 02K83ZZ Map Conduction Mechanism, Percutaneous Approach (ICD-10-PCS; principal; 2017-07-08)
PROC: 4A023FZ Measurement of Cardiac Rhythm, Percutaneous Approach (ICD-10-PCS; principal; 2017-07-08)
DX: I47.1 Supraventricular tachycardia (principal); R55 Syncope and collapse; I25.10 Atherosclerotic heart disease of native coronary artery without angina pectoris; G47.33 Obstructive sleep apnea (adult) (pediatric); Z95.5 Presence of coronary angioplasty implant and graft
CPT/HCPCS: 93005; 93306; 93613; 93621; 93623; 93653; C1730; C1731; C1732; C1893; J0461; J1644; J2370; J2405; J2704; J3010

== ENCOUNTER → 2017-11-26 | Outpatient (CLI) | payer OTHER, MEDICARE | LOC: BMCIMAGING 10:38 | PROVIDERS: ATTEND Physician Assistant | DX: M71.21 Synovial cyst of popliteal space [Baker], right knee (principal); I83.91 Asymptomatic varicose veins of right lower extremity ==

== ENCOUNTER → 2017-12-01 | Outpatient (CLI) | payer OTHER, MEDICARE | LOC: BMCIMAGING 09:34 | PROVIDERS: ATTEND Physician Assistant | DX: M25.761 Osteophyte, right knee (principal) ==

== ENCOUNTER → 2018-02-04 | Outpatient (CLI) | payer OTHER, MEDICARE ==
[~2018-02-04] MED LIST: DEPO METHYLPREDNISOLONE 40 MG/ML SDV ONE; LIDOCAINE 1% 300 MG/30 ML SDV ONE
== END ==
LOC: FIMAGING 07:31
PROVIDERS: ATTEND Radiology Diagnostic Radiology
PROC: 3E0233Z Introduction of Anti-inflammatory into Muscle, Percutaneous Approach (ICD-10-PCS; principal; 2018-02-04)
DX: I83.811 Varicose veins of right lower extremity with pain (principal); M25.561 Pain in right knee; M71.21 Synovial cyst of popliteal space [Baker], right knee
CPT/HCPCS: 20612; 76942; 93971; J1030

== ENCOUNTER → 2018-05-17 | Outpatient (CLI) | payer OTHER, MEDICARE | LOC: BHFA 15:00 | PROVIDERS: ATTEND Internal Medicine Cardiovascular Disease | DX: R55 Syncope and collapse (principal); I48.92 Unspecified atrial flutter ==

== ENCOUNTER 2018-05-18 07:39 | Day surgery (SDC) | payer OTHER, MEDICARE ==
[2018-05-18] MEDS ORDERED: PROTAMINE SULFATE 50 MG/5 ML VIAL IVP PRN (07:44)
[2018-05-18] MEDS ORDERED: fentaNYL 100 MCG/2 ML INJ IVP PRN (07:44)
[2018-05-18] MEDS ORDERED: FLUMAZENIL 0.5 MG/5 ML MDV IVP PRN (07:44)
[2018-05-18] MEDS ORDERED: ONDANSETRON 4 MG/2 ML VIAL IVP ONE (07:44)
[2018-05-18] MEDS ORDERED: NS 1,000 ML IV ONE (07:44)
[2018-05-18] MEDS ORDERED: NALOXONE HCL 0.4 MG/ML INJ IVP PRN (07:44)
[2018-05-18] MEDS ORDERED: ALTEPLASE 2 MG VIAL IVP PRN (07:44)
[2018-05-18] MEDS ORDERED: MIDAZOLAM 2 MG/2 ML VIAL IVP PRN (07:44)
[2018-05-18] MEDS ORDERED: MEPERIDINE 25 MG/ML SYR IVP PRN (07:44)
[2018-05-18] MEDS ORDERED: HEPARIN 10,000 UNIT/10 ML MDV (1,000 UNIT/ML) IVP PRN (07:44)
[2018-05-18] MEDS ORDERED: ceFAZolin 2 GM/DEXTROSE 100 ML IV ONE (07:44)
[2018-05-18] MEDS ORDERED: GLUCAGON HCL 1 MG VIAL IVP PRN (07:44)
[2018-05-18] MEDS ORDERED: MIDAZOLAM 2 MG/2 ML VIAL ONE (07:51)
[2018-05-18] MEDS ORDERED: fentaNYL 100 MCG/2 ML INJ ONE (07:51)
[2018-05-18] MEDS ORDERED: NALOXONE HCL 0.4 MG/ML INJ ONE (07:51)
[2018-05-18] MEDS ORDERED: FLUMAZENIL 0.5 MG/5 ML MDV IVP ONE (07:51)
[2018-05-18] MEDS ORDERED: CEFAZOLIN 2 GM/DEXTROSE/100 ML BAG IV ONE (07:51)
[2018-05-18] MEDS ORDERED: LIDO/EPI 1% **for epidural** 30 ML SDV ONE (08:27)
[2018-05-18] MEDS ORDERED: SODIUM TETRADECYL SULFATE 3% 2 ML VIAL IV ONE (08:27)
--- NOTE | 2018-05-18 09:15 | PDGENHP ---
History & Physical Chief Complaint: ROPEY RT LE VARICOSE VEINS History of Present Illness: BIG VARICOSE VEINS FROM RT GSV. Pertinent Past, Social, Family History: H/O RCA LESION, STENTED IN 2017. Relevant Physical Exam: LARGE ROPEY VARICOSE VEINS IN RT CALF Cardiorespiratory Assessment: RRR, CTA
--- NOTE | 2018-05-18 09:16 | PDPROPOC ---
Sedation Plan of Care Sedation Plan of Care: vital signs stable, mental status noted, patient educated of risks, benefits, alternatives, patient can tolerate sedation ASA Classification: ASA 2 Planned drugs: fentanyl, midazolam Mallampati Score: Class 1 Mallampati Reference Image: Patient passed 3-3-2 rule?: Yes
[2018-05-18] MEDS ORDERED: HYDROCODONE/APAP 5/325 TAB PO PRN (11:08)
[2018-05-18] MEDS ORDERED: ONDANSETRON DISINTEGRATING 4 MG TAB PO PRN (11:08)
[2018-05-18] MEDS ORDERED: ONDANSETRON 4 MG/2 ML VIAL IVP PRN (11:08)
[2018-05-18] MEDS ORDERED: IBUPROFEN 200 MG TAB PO ONE (11:08)
--- NOTE | 2018-05-18 11:12 | PDRADPN ---
Radiology Procedure Note Date of Procedure: 05/18/18 Radiologist: Nichelle Muro Anesthesia: IV Sedation Pre-op Diagnosis: LLE VARICOSE VEINS Post-op Diagnosis: SAME Indication: PAIN AND SWELLING Procedure: RT GSV LASER, SCLEROTHERAPY, PHLEBECTOMY Finding(s): LARGE ROPEY VARICOSE VEINS REMOVED. Inf/Abcess present in the surg proc area at time of surgery?: No
[2018-05-18] MEDS ORDERED: NS 1,000 ML IV SCH (11:15)
[2018-05-18 13:44] VITALS: BP 111/67
== END 2018-05-18 14:13 | disposition home or self-care (01) ==
LOC: FIMAGING 07:39
PROVIDERS: ATTEND Radiology Diagnostic Radiology
PROC: 06DP3ZZ Extraction of Right Saphenous Vein, Percutaneous Approach (ICD-10-PCS; principal; 2018-05-18 11:01)
PROC: 3E033TZ Introduction of Destructive Agent into Peripheral Vein, Percutaneous Approach (ICD-10-PCS; principal; 2018-05-18 11:01)
PROC: 065P3ZZ Destruction of Right Saphenous Vein, Percutaneous Approach (ICD-10-PCS; principal; 2018-05-18 11:01)
DX: I83.811 Varicose veins of right lower extremity with pain (principal); I25.10 Atherosclerotic heart disease of native coronary artery without angina pectoris; Z95.2 Presence of prosthetic heart valve
CPT/HCPCS: J0690; J2250; J2310; J3010

== ENCOUNTER → 2018-06-02 | Outpatient (CLI) | payer OTHER, MEDICARE | LOC: FIMAGING 15:00 | PROVIDERS: ATTEND Radiology Diagnostic Radiology | DX: Z09 Encounter for follow-up examination after completed treatment for conditions other than malignant neoplasm (principal) ==

== ENCOUNTER → 2018-08-05 | Outpatient (CLI) | payer OTHER, MEDICARE | LOC: FIMAGING 16:32 | PROVIDERS: ATTEND Radiology Diagnostic Radiology | DX: Z09 Encounter for follow-up examination after completed treatment for conditions other than malignant neoplasm (principal); I83.811 Varicose veins of right lower extremity with pain ==